=== PATIENT | male | born 1995 | race Caucasian/White ===

== ENCOUNTER 2023-10-04 09:00 | Emergency (ER) | payer SELFPAY ==
[2023-10-04 09:02] VITALS: BP 155/93; PULSE 72; RESP 18; TEMP 36.3; O2SAT 97
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
== END 2023-10-04 09:32 | disposition home or self-care (01) ==
LOC: ED 09:28
PROVIDERS: Emergency Provider Emergency Medicine; Visit Provider Emergency Medicine
DX: S39.012A Strain of muscle, fascia and tendon of lower back, initial encounter (principal); V49.40XA Driver injured in collision with unspecified motor vehicles in traffic accident, initial encounter
CPT/HCPCS: 99282